=== PATIENT | female | born 1960 | race African-American/Black ===

== ENCOUNTER → 2017-02-13 | Outpatient (CLI) | payer MEDICARE, OTHER ==
--- NOTE | 2017-02-13 12:23 | RAD ---
APPROVED REPORT Test Type: Exercise Stress Nurse/Tech: RT Paddy (Annelise) (N) Test Indications: chest pain, fatigue Cardiac History: none Medications: see ehr Medical History: none Resting ECG: sinus rhythm Resting Heart Rate: 64 bpm Resting Blood Pressure: 116/69mmHg Pretest Chest Pain: None Nurse/Tech Notes Consent: The procedure was explained to the patient in lay terms. Informed consent was witnessed. Justyn eout was entered into [employer]. History and Stress Test performed by RT Paddy (Annelise) (N) POST EXERCISE Reason for Termination: Fatigue Target HR: Yes Max HR: 152 bpm 93% of Maximum Predicted HR: 163 bpm Exercise duration: 7:06 min:sec, 3 Stage Exercise capacity: 10METs Max Blood Pressure: 146/79mmHg Blood Pressure response to exercise: Normal blood pressure response during stress. Chest Pain: No. INTERPRETATION Stress EKG Conclusion: The resting EKG shows a normal sinus rhythm with mild nonspecific ST segment c hanges The stress EKG shows no significant changes from baseline. No EKG evidence of stress-induced ischemia. Imaging Protocol IMAGE PROTOCOL: Rest Tc-99m/stress Tc-99m 1 day Rest: Stress: Viability: Radiopharm.Tc99m [id number] Sestamibi Dose11.1mCi 32mCi Duration 20min. 15min. Img Date 02/13/2017 02/13/2017 Inj-Img Hmhd20ijp. 60min. Post-Injection Exercise: 1 minute Rest Admin Site:IV - Right AntecubitalAdministrator: RT Paddy (Annelise)(N) Stress Admin Site: IV - Right AntecubitalAdministrator: RT aPddy (Annelise)(N) STRESS DATA End Diast. Vol.63.0mlAv. Heart Rate65.0bpm LVEDV index BSA1.0mlCardiac Output0.1L/min End Syst. Vol.17.0mlCO Index BSA2.9L/min LVESV index BSA0.0mlMyocardial Jduq705.0g Eject. Peaskcqd99.0% Stress Rates Pk. Fill Rate3.03EDV/secLVtime Pk. Fill 203.84msec Pk. Empty Rate3.77ESV/secLVtime Pk. Ixplu900.65msec 1/3 Pk. Fill1.54EDV/sec Stress Scores Regional WT0.00Summed WT4.00 Regional WM0.00Summed WM0.00 LV Perfusion The stress scans showed no significant defects. The rest scans showed no significant defects. Nuclear imaging shows no reversible ischemia or infarct. Wall Motion Left ventricular systolic function is normal with an ejection fraction of greater than 70%. LV Perf. Quant 17 Seg. SSS0.00 17 Seg. SRS2.00 17 Seg. SDS0.00 Stress Defect Extent (% LAD)0.00Rest Defect Extent (% LAD)5.00Rev. Defect Extent (% LAD)0.00 Stress Defect Extent (% LCX) 0.00Rest Defect Extent (% LCX)0.00Rev. Defect Extent (% LCX)0.00 Stress Defect Extent (% RCA)0.00Rest Defect Extent (% RCA)0.00Rev. Defect Extent (% RCA)0.00 Stress Defect Extent (% LUDIN)0.00Rest Defect Extent (% LUDIN)1.70Rev. Defect Extent (% LUDIN)0.00 Conclusion 1. Good exercise tolerance. 2. No chest pain with exertion. 3. No EKG evidence of stress-induced ischemia. 4. Nuclear imaging shows no reversible ischemia or infarct. 5. Normal left ventricular systolic function with an ejection fraction of greater than 70%. 6. Low risk treadmill nuclear stress test.
== END | disposition home or self-care (01) ==
LOC: NM 08:30
PROVIDERS: ATTEND Internal Medicine Cardiovascular Disease
DX: R06.00 Dyspnea, unspecified (principal); R53.83 Other fatigue
CPT/HCPCS: 78452; 93017; 96374; 96376; A9500

== ENCOUNTER → 2017-07-15 | Outpatient (CLI) | payer MEDICARE, OTHER ==
--- NOTE | 2017-07-15 15:59 | RAD ---
Left foot, 3 views, 07/15/2017: History: Foot pain. No fracture or dislocation is identified. There are minimal arthritic changes at scattered interphalangeal joints. There is mild subcutaneous edema. IMPRESSION: No acute bony abnormality is detected.
== END | disposition home or self-care (01) ==
LOC: DXRADRC 15:47
PROVIDERS: ATTEND Nurse Practitioner Family
DX: M19.072 Primary osteoarthritis, left ankle and foot (principal)
CPT/HCPCS: 73630

== ENCOUNTER → 2017-07-17 | Outpatient (CLI) | payer MEDICARE, OTHER ==
--- NOTE | 2017-07-17 14:23 | RAD ---
Renal ultrasound, 07/17/2017: History: Hematuria, left flank pain The right kidney measures 10.7 cm in length while the left kidney measures 10.3 cm. There is no evidence of hydronephrosis or a renal mass. The renal parenchymal echogenicity is within normal limits. Limited views of the poorly distended urinary bladder show no abnormality. IMPRESSION: No significant renal abnormality is detected.
== END | disposition home or self-care (01) ==
LOC: US 13:28
PROVIDERS: ATTEND Nurse Practitioner Family
DX: R31.9 Hematuria, unspecified (principal); N32.89 Other specified disorders of bladder
CPT/HCPCS: 76770

== ENCOUNTER 2020-06-05 11:13 | Emergency (ER) | payer MEDICARE, OTHER ==
[~2020-06-05] VITALS: Ht 162.6 cm; Wt 74.2 kg
--- NOTE | 2020-06-05 13:03 | RAD ---
CHEST AP ONLY INDICATION: Reason: shob / Spl. Instructions: / History: . COMPARISON STUDY: None. FINDINGS: Lungs: Normal lung volume. No pulmonary mass or consolidation. The tracheobronchial tree and hilar structures are normal. Pleura: No pleural effusion or pneumothorax. Heart and Mediastinum: The cardiomediastinal silhouette is normal. The great vessels of the thorax are normal. IMPRESSION: No acute cardiopulmonary process. Electronically signed by: Iron Snell MD (06/05/2020 1:00 PM) [id number]
[2020-06-05 13:16] VITALS: BP 127/81
--- NOTE | 2020-06-05 13:22 | PHYS DOC ---
Past History Past Medical History: No Pertinent History (Tested COVID positive 6 days ago) Adult General Chief Complaint Chief Complaint: SHORTNESS OF BREATH HPI HPI Patient is a 59yo F who presents for check-up. Patient is typically healthy and has no known medical conditions. Nonetheless, patient recently tested positive for COVID-19 6 days ago after being exposed to a family member who was found to be a positive asymptomatic carrier. Since diagnosis, patient has been relatively symptom free. She denies fever, chills, fatigue, chest pain, SHOB, AP, or urinary symptoms. She was concerned about her diagnosis and visited our ED "just to get checked out". Review of Systems Review of Systems Fourteen body systems have been reviewed. See HPI for pertinent positives and negative responses, other calderon all other systems are negative, non pertinent or non contributory Allergies Allergies Allergies Coded Allergies Type Severity Reaction Last Updated Verified No Known Drug Allergies 02/13/17 No Physical Exam Physical Exam Constitutional: Well developed, well nourished, no acute distress, non-toxic appearance. [] HENT: Normocephalic, atraumatic, bilateral external ears normal, oropharynx moist, no oral exudates, nose normal. [] Eyes: PERRLA, EOMI, conjunctiva normal, no discharge. [] Neck: Normal range of motion, no tenderness, supple, no stridor. [] Cardiovascular:Heart rate regular rhythm, no murmur [] Lungs & Thorax: Bilateral breath sounds clear to auscultation [] Abdomen: Bowel sounds normal, soft, no tenderness, no masses, no pulsatile masses. [] Skin: Warm, dry, no erythema, no rash. [] Back: No tenderness, no CVA tenderness. [] Extremities: No tenderness, no cyanosis, no clubbing, ROM intact, no edema. [] Neurologic: Alert and oriented X 3, normal motor function, normal sensory function, no focal deficits noted. [] Psychologic: Affect normal, judgement normal, mood normal. [] Current Patient Data Vital Signs Vital Signs Date Time Temp Pulse Resp B/P (MAP) Pulse Ox O2 Delivery O2 Flow Rate FiO2 06/05/20 13:16 82 20 127/81 (96) 100 Room Air 06/05/20 12:46 81 18 128/83 (98) 99 Room Air 06/05/20 12:16 79 132/83 (99) 100 06/05/20 11:47 96.0 90 18 138/92 (107) 99 Room Air EKG EKG [] Radiology/Procedures Radiology/Procedures PROCEDURE: CHEST AP ONLY CHEST AP ONLY INDICATION: Reason: shob / Spl. Instructions: / History: . COMPARISON STUDY: None. FINDINGS: Lungs: Normal lung volume. No pulmonary mass or consolidation. The tracheobronchial tree and hilar structures are normal. Pleura: No pleural effusion or pneumothorax. Heart and Mediastinum: The cardiomediastinal silhouette is normal. The great vessels of the thorax are normal. IMPRESSION: No acute cardiopulmonary process. Electronically signed by: Iron Snell MD (06/05/2020 1:00 PM) [id number] Course & Med Decision Making Course & Med Decision Making Hemodynamically stable patient self-ambulated to ED and room for evaluation History and physical exam grossly benign CXR obtained and non-concerning Patient observed in ED, was found self-ambulating without issues, saturating >95% on RA without any signs of respiratory distress ED course and expectations of COVID-19 disease discussed, joint-decision for discharge home with continued supportive care Strict return precautions were discussed at length and also printed for patient prior to departure with good understanding All questions and concerns addressed prior to discharge Stable patient discharged home with strict orders for home quarantine Dragon Disclaimer Dragon Disclaimer This electronic medical record was generated, in whole or in part, using a voice recognition dictation system. Departure Departure: Impression: Primary Impression: COVID-19 Disposition: 01 HOME/RESIDENCE PRIOR TO ADM Condition: STABLE Referrals: BENITA RAVI DO (PCP) Additional Instructions: You have been tested for or diagnosed with COVID-19. It is an infection caused by a new type of coronavirus. COVID-19 will cause cold-like or mild flu symptoms in most. It can cause more severe symptoms like problems breathing in some. There is no treatment for COVID-19. The body will clear the infection over time. Self-care will help to ease discomfort. Steps to Take: Self-Care Rest as needed. Healthy habits may help you feel better. Steps include: Choose healthy foods including fruits and vegetables. Drink water throughout the day. Get plenty of sleep each night. If you smoke, try to quit. It may ease breathing. Avoid alcohol. Keep Others Healthy The virus can spread to others. Droplets are released every time you sneeze or cough. The droplets can get into the mouth, nose, or eyes of people near you and lead to infection. To lower the chances of spreading COVID-19 to others: Stay at home until your doctor has said it is safe to leave. If you tested positive this will mean staying isolated until both of the following are true: At least 7 days have passed since the start of illness. You are free of fever for at least 72 hours without the use of medicine. During this time: - Avoid public areas, events, or transportation. Do not return to work or school until your doctor has said it is safe to do so. - Call ahead if you need to go to a medical center. Let them know you may have COVID-19. It will help them guide you where to go. They may also ask you to wear a facemask when you come to the office. - If you call for emergency medical services, let them know you may have COVID- 19. While at home: - Try to avoid close contact with others. Stay about 6 feet away. - If possible, spend most of your time in a separate room from others. - Use a face mask if you will be in close contact with others such as sharing a room or vehicle. - Have someone wipe down common surfaces in the home. Use household physician gynecologist every day on areas like doorknobs, counters, or sinks. - Cough or sneeze into a tissue. Throw the tissue away right after use. If a tissue is not available, cough or sneeze into your elbow. - Wash your hands often. Wash them after sneezing or coughing. Use soap and water and wash for at least 20 seconds. Alcohol based hand immersion metalcleaner can be used if soap and water is not available. - Do not prepare food for others. Avoid sharing personal items like forks, spoons, or toothbrushes. - Avoid close contact with pets while you are sick. There is no evidence of the virus passing to pets. This is a safety step until more is known about this virus. Isolation can be frustrating. Social interaction can help. Keep in touch with friends and family through phone and tech options. You can still interact with others in your home, just keep a safe distance of about 6 feet. Follow-up: Your doctors office will check in with you to see if there are any changes in your health. You may be asked to keep track of symptoms to share with them. They will also let you know when you are clear to be in public again. Problems to Look Out For: Contact your doctor if your recovery is not going as you expect. Get emergency care if you have problems such as: - Trouble breathing - Nonstop chest pain or pressure - Changes in awareness, confusion, or problems waking - Lips or face have bluish color - Worsening of symptoms If you think you have an emergency, call for emergency medical services right away. As taken from [facility] You were evaluated in the Emergency Department today for a cough. Your evaluation suggests a viral infection such as Coronavirus. It is important that you continue to self isolate and practice good hygiene at home. Please follow up with your primary care physician as discussed. Return to the Emergency Department if you experience worsening cough, fever, shortness of breath, recurrent vomiting, lethargy, or any other concerning symptoms. Thank you for choosing us for your care. Usted fue evaluado en el Departamento de Emergencia hoy por tos. Carrera evaluacin sugiere meghan infeccin viral lesia el coronavirus. Es importante que contine aislndose y practicando meghan buena higiene en el hogar. Todd un seguimiento con carrera mdico de atencin primaria lesia se discuti. Regrese al Departamento de Emergencias si experimenta un empeoramiento de la tos, fiebre, falta de aliento, vmitos recurrentes, letargo o cualquier otro sntoma relacionado. Ben por elegir nosotros para carrera atencin. Home Care Instructions for Patients with Mild Respiratory Infection Most people with respiratory infections like colds, the flu, and Coronavirus Disease (COVID-19) will have mild illness and can get better with appropriate home care and without the need to see a provider. People who are elderly, , or have a weak immune system, or other medical problem are at higher risk of more serious illness or complications. It is recommended that they carefully monitor their symptoms closely and seek medical care early if their symptoms get worse. TREATMENT AND MEDICAL CARE Treatment There is no specific treatment for most viruses including those that that cause the common cold and those that cause COVID-19. Sometimes there is treatment for the viruses that cause influenza if given early. Antibiotics treat infections caused by bacteria, but they do not work against viruses.Most people recover on their own from these viruses, including COVID-19. Here are steps that you can take to help you get better: Rest Drink plenty of fluids Take dqzn-ims-glpdmqm cold and flu medications to reduce fever and pain. Follo w the instructions on the package, unless your doctor gave you instructions. Note that these medicines do not ``cure the illness and therefore do not stop you from spreading germs. Children should not be given medication that contains aspirin (acetylsalicylic acid) because it can cause a rare but serious illness called Sudarshan syndrome. Medicines without aspirin include acetaminophen (Tylenol) and ibuprofen (Advil, Motrin). Children younger than age 2 should not be given any bcyn-urf-bfotcnu cold medications without first speaking with a doctor.Seeking Medical Care You should seek medical care if you are not getting better within a week, or if your symptoms get worse. If you are elderly, , have a weak immune system, or other medical problems, call your doctor right away. It is best to call ahead of time to discuss your symptoms, if possible. This may allow you to receive the advice you need by phone. By avoiding a visit to a healthcare facility, you protect yourself from getting a new infection and protect others from catching an infection from you. If you do visit a healthcare facility, put on a mask to protect other patients and staff. It is recommended that you seek medical care for serious symptoms, such as: People with potentially life-threatening symptoms should call 911. If possible, put on a facemask before emergency medical services arrive.PROTECTING OTHERS Follow the steps below to help prevent the disease from spreading to people in your home and community.Stay home when you are sick Stay home - do not go to work, school, or public areas. Stay home for at least 24 hours after your symptoms have gone away without the use of fever-reducing medicines. If you must leave home while you are sick, try to avoid using public transportation, ride-shares, and taxis. Wear a mask if possible. Separate yourself from other people and animals in your home Stay in a specific room and away from other people in your home as much as possible. Use a separate bathroom, if available. Try to stay at least 6 feet from others. Do not handle pets or other animals while you are sick. Cover your coughs and sneezes Cover your mouth and nose with a tissue when you cough or sneeze. Throw used tissues in a lined trash can; immediately wash your hands. Avoid sharing personal household items Do not share dishes, drinking glasses, cups, eating utensils, towels, or bedding with other people or pets in your home. Wash them thoroughly with soap and water after use. Clean your hands often Wash your hands often with soap and water for at least 20 seconds. If soap and water are not available, clean your hands with an alcohol-based hand auto damage estimator that contains at least 60% alcohol, covering all surfaces of your hands and rubbing them together until they feel dry. Use soap and water if your hands are visibly dirty. Clean all ``high-touch surfaces every day High touch surfaces include counters, tabletops, doorknobs, bathroom fixtures, toilets, phones, keyboards, tablets, and bedside tables. Also, clean any ana faces that may have body fluids on them. Use a household cleaning spray or wipe, according to the product label instructions. COVID-19 (Novel Coronavirus) FAQs for Inquiring Patients What do you do if you are worried that you have been exposed to COVID-19 but are without any symptoms? If you develop symptoms that may indicate an infection, contact your physician. These include fever, cough, and shortness of breath. Testing is not available for asymptomatic individuals, regardless of travel history. To reduce the chance of getting sick use general infection prevention measures such as hand washing, covering your mouth and nose when you cough or sneeze and discarding any tissues carefully, and staying home when you are sick.Can exceptions be made for patients who are really worried and want to be tested? Presently testing is only available through the [facility] Department of Public Health and Centers for Disease Control and Prevention. Only patients who meet the updated COVID-19 PUI definition may be tested. We do not control or set the PUI definition or evaluation criteria. We are unable to provide testing to patients who do not meet the strict criteria. Should patients cancel or postpone an upcoming trip? The decision about travel is personal and should be made in the context of a persons underlying health conditions, reason for travel and necessity of travel. Travel insurance generally does not cover cancellations due to concerns of infectious disease outbreaks. The Center for Disease Control has a section on travel notices. Situations are changing frequently and you should monitor the site for updates. Should situations change rapidly in a foreign country while they are traveling, you could be subject to quarantine or restrictions upon return to the [facility]. It is best to have a plan on how to return urgently if needed during a trip abroad. Because of how air circulates and is filtered on airplanes, most viruses do not spread easily on airplanes. CDC does not recommend use of facemasks during air travel.What other general precautions are advised? Patients should be instructed to: Avoid close contact with people who are sick. Avoid touching your eyes, nose and mouth. Stay home from work or school when they are sick. If you have a fever, you shoul d remain home until 24 hours after fever resolves. Clean and disinfect frequently touched objects and surfaces using a regular h ousehold cleaning spray or wipe. Sneeze/cough into their elbow, not your hand. Practice frequent hand hygiene with soap and water (at least 20 seconds) or alcohol-based hand rub. Consider avoiding crowded places or mass gatherings, especially if you are im munocompromised or have chronic lung disease. There is no evidence to support transmission of COVID-19 from goods imported from [place]. Are there any special precautions that are recommended if I am ? There is not yet any information available about the susceptibility of women to COVID-19. As a general rule, women may be more susceptible to viral respiratory infections and at risk for more severe illness. The CDC guidance for COVID-19 and has answers to questions about tra nsmission during delivery, as well as other situations. Should food, water, or medications be stockpiled? Should people telecommute? The CDC has excellent information on this. Please visit the CDCs guidance for getting your household ready for COVID-19. What should I do if I start feeling sick at work? And what should the workplace do for anyone exposed? Anyone who is sick with a fever and cough should stay home from work until at least 24 hours after resolution of fever, regardless of concerns for COVID-19. It is still influenza (flu) season and influenza remains far more common. Justification of Admission: Justification of Admission: Justification of Admission Dx: N/A STACEY CHANDLER DO Jun 05, 2020 13:22
== END 2020-06-05 13:28 | disposition home or self-care (01) ==
LOC: ER 11:13
DX: U07.1 COVID-19 (principal)
CPT/HCPCS: 71045; 99283

== ENCOUNTER 2020-06-08 12:08 | Emergency (ER) | payer MEDICARE, OTHER ==
[~2020-06-08] VITALS: Ht 162.6 cm; Wt 59.0 kg
[2020-06-08 12:29] VITALS: BP 143/76
--- NOTE | 2020-06-08 12:38 | PHYS DOC ---
Past History Past Medical History: Anxiety Past Surgical History: No Surgical History Alcohol Use: None Adult General Chief Complaint Chief Complaint: SHORTNESS OF BREATH HPI HPI Patient is a 59-year-old female who presents for ER follow-up. She was recently seen in our ER and evaluated by myself 2 days ago after being known COVID positive. She was asymptomatic at time of exposure and was found to be positive within the past 7 days. At prior visit, patient was asymptomatic citing mild difficulty with inspiration; otherwise, no other concerning signs or symptoms. An x-ray was performed and showed no acute disease. Patient was educated extensively on the disease course of COVID-19 and sent home with continued supportive care. Nonetheless, patient's anxiety and continued shortness of breath on inspiration brought her in for evaluation. She wants "blood work "performed. She has no new symptoms since she was last seen. Denies any fever, denies any other concerning constitutional symptoms, chest pain or tightness, abdominal pain, bladder bowel function. She is requesting medical treatment today, she wants inhalers and steroids Review of Systems Review of Systems Fourteen body systems of review of systems have been reviewed. See HPI for pertinent positives and negative responses, other calderon all other systems are negative, non-pertinent or non-contributory Allergies Allergies Allergies Coded Allergies Type Severity Reaction Last Updated Verified No Known Drug Allergies 02/13/17 No Physical Exam Physical Exam Constitutional: Well developed, well nourished, no acute distress, non-toxic appearance. [] HENT: Normocephalic, atraumatic, bilateral external ears normal, oropharynx moist, no oral exudates, nose normal. [] Eyes: PERRLA, EOMI, conjunctiva normal, no discharge. [] Neck: Normal range of motion, no tenderness, supple, no stridor. [] Cardiovascular:Heart rate regular rhythm, no murmur [] Lungs & Thorax: Bilateral breath sounds clear to auscultation [] Abdomen: Bowel sounds normal, soft, no tenderness, no masses, no pulsatile masses. [] Skin: Warm, dry, no erythema, no rash. [] Back: No tenderness, no CVA tenderness. [] Extremities: No tenderness, no cyanosis, no clubbing, ROM intact, no edema. [] Neurologic: Alert and oriented X 3, normal motor function, normal sensory function, no focal deficits noted. [] Psychologic: Affect normal, judgement normal, mood normal. [] Current Patient Data Vital Signs Vital Signs Date Time Temp Pulse Resp B/P (MAP) Pulse Ox O2 Delivery O2 Flow Rate FiO2 06/08/20 12:29 98.4 95 18 143/76 (98) 97 Room Air EKG EKG [] Radiology/Procedures Radiology/Procedures [] Course & Med Decision Making Course & Med Decision Making Patient self ambulatory and seen by myself on arrival Comprehensive history and physical exam obtained. Patient well-appearing, nontoxic, no clinical indication for further work-up or invasive intervention Patient wanted blood levels checked, specifically her oxygen. I told her this was not necessary as she was hooked up to pulse ox monitor with readings greater than 96% throughout duration of stay Patient also wanted inhaler and steroid use to alleviate her symptoms. Patient on clinical exam had no wheezes or other indications for such medications, I discussed this with her at length Again, I educated patient extensively on the disease course of COVID-19. I educated her on signs and symptoms that should bring her back here for emergent care and evaluation Ultimately, patient discharged in stable condition back home with continued self quarantine and supportive care instructions with close PCP follow-up after quarantine. Dragon Disclaimer Dragon Disclaimer This electronic medical record was generated, in whole or in part, using a voice recognition dictation system. Departure Departure: Impression: Primary Impression: COVID-19 Disposition: 01 HOME/RESIDENCE PRIOR TO ADM Condition: STABLE Referrals: BENITA RAVI DO (PCP) Additional Instructions: Short You were evaluated in the Emergency Department today for a cough. Your evaluation suggests a viral infection such as Coronavirus. It is important that you continue to self isolate and practice good hygiene at home. Please follow up with your primary care physician as discussed. Return to the Emergency Department if you experience worsening cough, fever, shortness of breath, recurrent vomiting, lethargy, or any other concerning symptoms. Thank you for choosing us for your care. Usted fue evaluado en el Departamento de Emergencia hoy por tos. Carrera evaluacin sugiere meghan infeccin viral lesia el coronavirus. Es importante que contine aislndose y practicando meghan buena higiene en el hogar. Todd un seguimiento con carrera mdico de atencin primaria lesia se discuti. Regrese al Departamento de Emergencias si experimenta un empeoramiento de la tos, fiebre, falta de aliento, vmitos recurrentes, letargo o cualquier otro sntoma relacionado. Ben por elegir nosotros para carrera atencin. Home Care Instructions for Patients with Mild Respiratory Infection Most people with respiratory infections like colds, the flu, and Coronavirus Disease (COVID-19) will have mild illness and can get better with appropriate home care and without the need to see a provider. People who are elderly, , or have a weak immune system, or other medical problem are at higher risk of more serious illness or complications. It is recommended that they carefully monitor their symptoms closely and seek medical care early if their symptoms get worse. TREATMENT AND MEDICAL CARE Treatment There is no specific treatment for most viruses including those that that cause the common cold and those that cause COVID-19. Sometimes there is treatment for the viruses that cause influenza if given early. Antibiotics treat infections caused by bacteria, but they do not work against viruses.Most people recover on their own from these viruses, including COVID-19. Here are steps that you can take to help you get better: Rest Drink plenty of fluids Take ivkg-blc-lusqvty cold and flu medications to reduce fever and pain. Follow the instructions on the package, unless your doctor gave you instructions. Note that these medicines do not ``cure the illness and therefore do not stop you from spreading germs. Children should not be given medication that contains aspirin (acetylsalicylic acid) because it can cause a rare but serious illness called Sudarshan syndrome. Medicines without aspirin include acetaminophen (Tylenol) and ibuprofen (Advil, Motrin). Children younger than age 2 should not be given any zddv-olx-eeqfqil cold medications without first speaking with a doctor.Seeking Medical Care You should seek medical care if you are not getting better within a week, or if your symptoms get worse. If you are elderly, , have a weak immune system, or other medical problems, call your doctor right away. It is best to call ahead of time to discuss your symptoms, if possible. This may allow you to receive the advice you need by phone. By avoiding a visit to a healthcare facility, you protect yourself from getting a new infection and protect others from catching an infection from you. If you do visit a healthcare facility, put on a mask to protect other patients and staff. It is recommended that you seek medical care for serious symptoms, such as: People with potentially life-threatening symptoms should call 911. If possible, put on a facemask before emergency medical services arrive.PROTECTING OTHERS Follow the steps below to help prevent the disease from spreading to people in your home and community.Stay home when you are sick Stay home - do not go to work, school, or public areas. Stay home for at least 24 hours after your symptoms have gone away without the use of fever-reducing medicines. If you must leave home while you are sick, try to avoid using public transportation, ride-shares, and taxis. Wear a mask if possible. Separate yourself from other people and animals in your home Stay in a specific room and away from other people in your home as much as possible. Use a separate bathroom, if available. Try to stay at least 6 feet from others. Do not handle pets or other animals while you are sick. Cover your coughs and sneezes Cover your mouth and nose with a tissue when you cough or sneeze. Throw used tissues in a lined trash can; immediately wash your hands. Avoid sharing personal household items Do not share dishes, drinking glasses, cups, eating utensils, towels, or bedding with other people or pets in your home. Wash them thoroughly with soap and water after use. Clean your hands often Wash your hands often with soap and water for at least 20 seconds. If soap and water are not available, clean your hands with an alcohol-based hand chronometer assembler that contains at least 60% alcohol, covering all surfaces of your hands and rubbing them together until they feel dry. Use soap and water if your hands are visibly dirty. Clean all ``high-touch surfaces every day High touch surfaces include counters, tabletops, doorknobs, bathroom fixtures, toilets, phones, keyboards, tablets, and bedside tables. Also, clean any surfaces that may have body fluids on them. Use a household cleaning spray or wipe, according to the product label instructions. COVID-19 (Novel Coronavirus) FAQs for Inquiring Patients What do you do if you are worried that you have been exposed to COVID-19 but are without any symptoms? If you develop symptoms that may indicate an infection, contact your physician. These include fever, cough, and shortness of breath. Testing is not available for asymptomatic individuals, regardless of travel history. To reduce the chance of getting sick use general infection prevention measures such as hand washing, covering your mouth and nose when you cough or sneeze and discarding any tissues carefully, and staying home when you are sick.Can exceptions be made for patients who are really worried and want to be tested? Presently testing is only available through the [facility] Department of Public Health and Centers for Disease Control and Prevention. Only patients who meet the updated COVID-19 PUI definition may be tested. We do not control or set the PUI definition or evaluation criteria. We are unable to provide testing to patients who do not meet the strict criteria. Should patients cancel or postpone an upcoming trip? The decision about travel is personal and should be made in the context of a persons underlying health conditions, reason for travel and necessity of travel. Travel insurance generally does not cover cancellations due to concerns of infectious disease outbreaks. The Center for Disease Control has a section on travel notices. Situations are c hanging frequently and you should monitor the site for updates. Should situations change rapidly in a foreign country while they are traveling, you could be subject to quarantine or restrictions upon return to the [place]. It is best to have a plan on how to return urgently if needed during a trip abroad. Because of how air circulates and is filtered on airplanes, most viruses do not spread easily on airplanes. CDC does not recommend use of facemasks during air travel.What other general precautions are advised? Patients should be instructed to: Avoid close contact with people who are sick. Avoid touching your eyes, nose and mouth. Stay home from work or school when they are sick. If you have a fever, you should remain home until 24 hours after fever resolves. Clean and disinfect frequently touched objects and surfaces using a regular household cleaning spray or wipe. Sneeze/cough into their elbow, not your hand. Practice frequent hand hygiene with soap and water (at least 20 seconds) or alcohol-based hand rub. Consider avoiding crowded places or mass gatherings, especially if you are immunocompromised or have chronic lung disease. There is no evidence to support transmission of COVID-19 from goods imported from [place]. Are there any special precautions that are recommended if I am ? There is not yet any information available about the susceptibility of women to COVID-19. As a general rule, women may be more susceptible to viral respiratory infections and at risk for more severe illness. The CDC guidance for COVID-19 and has answers to questions about transmission during delivery, as well as other situations. Should food, water, or medications be stockpiled? Should people telecommute? The CDC has excellent information on this. Please visit the CDCs guidance for getting your household ready for COVID-19. What should I do if I start feeling sick at work? And what should the workplace do for anyone exposed? Anyone who is sick with a fever and cough should stay home from work until at least 24 hours after resolution of fever, regardless of concerns for COVID-19. It is still influenza (flu) season and influenza remains far more common. Justification of Admission: Justification of Admission: Justification of Admission Dx: N/A STACEY CHANDLER DO Jun 08, 2020 12:38
== END 2020-06-08 12:45 | disposition home or self-care (01) ==
LOC: ER 12:08
DX: U07.1 COVID-19 (principal); F41.9 Anxiety disorder, unspecified
CPT/HCPCS: 99281

== ENCOUNTER → 2020-12-14 | Outpatient (CLI) | payer MEDICARE, OTHER ==
--- NOTE | 2020-12-14 18:07 | RAD ---
Lumbar spine 3 views: Reason for examination: Abdominal pain and back pain. The vertebral bodies of the lumbar spine are normally aligned anteriorly and posteriorly. No acute fr acture or subluxation is evident. Posterior elements appear to be intact. There are some degenerative changes at the L4-5 and L5-S1 facet joints. The sacrum or sacroiliac joints show no abnormalities. T he intervertebral discs are maintained. IMPRESSION: Degenerative facet changes at the L4-5 and L5-S1 levels. No acute abnormality in the lumbar spine. Abdomen 2 views: The lung bases appear to be clear. There is no gross organomegaly. Psoas muscles are symmetric. Bowel gas pattern is nonspecific and non obstructive. Calcifications probably representing phleboliths are seen in the pelvis. No acute bony a bnormalities are seen in the lumbar spine or pelvis. IMPRESSION: Nonspecific nonobstructive bowel gas pattern. Calcifications seen in the pelvis bilaterally which probably represent phleboliths but recommend clin ical correlation as distal ureteral calculi cannot be excluded. Electronically signed by: Vandana Oliveira MD (12/14/2020 6:04 PM) [facility]
== END ==
LOC: PMG 17:39
PROVIDERS: ATTEND Physician Assistant
DX: M47.817 Spondylosis without myelopathy or radiculopathy, lumbosacral region (principal); M25.80 Other specified joint disorders, unspecified joint
CPT/HCPCS: 72100; 74019

== ENCOUNTER → 2020-12-23 | Outpatient (CLI) | payer MEDICARE, OTHER ==
--- NOTE | 2020-12-23 16:45 | RAD ---
EXAM: Abdomen and pelvis CT without contrast. HISTORY: Anemia. Hematuria. Left flank pain. TECHNIQUE: Computed tomographic images the abdomen and pelvis were obtained without contrast. *One or more of the following individualized dose reduction techniques were utilized for this examina tion: 1. Automated exposure control. 2. Adjustment of the mA and/or kV according to patient size. 3. Use of iterative reconstruction technique. COMPARISON: None. FINDINGS: Evaluation of the lower thorax is unremarkable. No suspicious hepatic lesion is seen. The g allbladder, pancreas, spleen and adrenal glands are unremarkable. There is a 1 mm nonobstructing ston e within the inferior right kidney. There are calcifications along the courses of the distal ureters due to pelvic phleboliths. There is no hydronephrosis. There is a suspected cyst within the lateral l ower mid zone of the left kidney measuring 1.5 cm. There is no evidence of bowel obstruction. The appendix is surgically absent. There is a tiny umbilic al hernia containing a portion of the mid transverse colon wall. The hernia defect measures approxima tely 1.9 cm. There is no lymphadenopathy. The uterus is absent. There is no suspicious osseous lesion . IMPRESSION: 1. No convincing acute abdominal or pelvic finding. 2. 1 mm nonobstructing right renal stone. 3. Small region of hypodensity within the left kidney, possibly due to a cyst. This is difficult to c onfirm in the absence of contrast. Renal sonography can be performed to confirm benignity. 3. Tiny umbilical hernia containing a portion of mid transverse colon. There is no evidence of mechan ical obstruction. Electronically signed by: Terese Frost MD (12/23/2020 4:42 PM) [id number]
== END ==
LOC: CT 15:32
PROVIDERS: ATTEND Physician Assistant
DX: K42.9 Umbilical hernia without obstruction or gangrene (principal); N20.0 Calculus of kidney; I87.8 Other specified disorders of veins; N28.89 Other specified disorders of kidney and ureter; D64.9 Anemia, unspecified; R31.9 Hematuria, unspecified; R10.9 Unspecified abdominal pain
CPT/HCPCS: 74176

== ENCOUNTER → 2021-01-16 | Outpatient (CLI) | payer MEDICARE, OTHER ==
--- NOTE | 2021-01-16 10:12 | RAD ---
PROCEDURE: US RENAL BILAT STUDY DATE: 01/16/2021 CLINICAL INDICATION / HISTORY: Reason: ABNORMAL CT / Spl. Instructions: / History: . Patient is 60 and has anemia, hematuria and left flank pain. Left renal hypodensity on CT. TECHNIQUE: Real time ultrasound with hard copy imaging was performed. COMPARISON: Abdomen and pelvis CT without IV contrast 12/23/2020 FINDINGS: Ultrasound evaluation demonstrates the kidneys are normal in size and shape with with appro priate echogenicity and cortical thickness. There is no mass, hydronephrosis, or demonstrable stone formation. The right kidney measures 9.7 x 4.1 x 4.3 cm and the left kidney measures 9.4 x 4.6 x 5.7 cm. The abdominal aorta is normal in caliber. The Inferior vena cava is unremarkable. No abnormal fluid collections are demonstrated. The urinary bladder was not visualized as the patient had just voided. IMPRESSION: No definite renal mass identified by ultrasound at this examination. Given history of hematuria [facility] er, recommend renal mass protocol abdominal CT with and without IV contrast or abdominal MRI with and without IV contrast to confirm these findings when clinically feasible, preferably within the next 3 -6 months. Electronically signed by: Danilo Garcia MD (01/16/2021 10:10 AM) [id number]
== END ==
LOC: US 08:22
PROVIDERS: ATTEND Physician Assistant
DX: R93.5 Abnormal findings on diagnostic imaging of other abdominal regions, including retroperitoneum (principal); R10.9 Unspecified abdominal pain; R31.9 Hematuria, unspecified; D64.9 Anemia, unspecified
CPT/HCPCS: 76770

== ENCOUNTER → 2021-02-28 | Outpatient (CLI) | payer MEDICARE, OTHER | LOC: US 13:04 | PROVIDERS: ATTEND Nurse Practitioner Family | DX: M79.604 Pain in right leg (principal) | CPT/HCPCS: 93971 ==

== ENCOUNTER 2021-03-05 15:07 | Emergency (ER) | payer MEDICARE, OTHER ==
[~2021-03-05] VITALS: Ht 162.6 cm; Wt 55.8 kg
--- NOTE | 2021-03-05 15:59 | PHYS DOC ---
Past History Past Medical History: Anxiety Past Surgical History: No Surgical History Alcohol Use: None General Adult EDM: Chief Complaint: ANXIETY/PANIC ATTACK HPI: HPI: 60-year-old -[place] female past medical history of anxiety, resents the ED with complaints of " I cannot calm down, I get sick when I eat," for the past week (keeps down water and ensure). Reports she stopped taking her BuSpar in January 2020 because she felt as if her anxiety was well controlled. States she is unable to relax. Stressed about her 30 yr old AA son who is "always hanging in the streets, multiple police encounters." States he follows with depression but she is unaware of him using drugs or plans to harm self or others. States she prays alot of him and can't stop worrying. Patient denies any alcohol, methamphetamine or cocaine abuse. States she occasionally drinks 1 cup coffee but not daily. Is not on any weight loss medications. Reports her can take her home. Review of Systems: Review of Systems: Constitutional: Denies fever or chills Eyes: Denies change in visual acuity HENT: Denies nasal congestion or sore throat Respiratory: Denies cough or shortness of breath Cardiovascular: Denies chest pain or syncope GI: Denies abdominal pain, vomiting, : Denies dysuria or vaginal bleeding Musculoskeletal: Denies back pain or joint pain Integument: Denies rash or diaphoresis Neurologic: Denies headache, focal weakness or sensory changes Endocrine: Denies polyuria or polydipsia Psychiatric: Denies depression, suicidal or homicidal ideations Current Medications: Current Meds: Current Medications Medications (Trade) Dose Ordered Sig/True Start Time Stop Time Status Last Admin Dose Admin Alprazolam (Xanax) 0.5 mg 1X ONCE 03/05/21 16:00 03/05/21 16:01 UNV Ondansetron HCl (Zofran Odt) 4 mg 1X ONCE 03/05/21 16:00 03/05/21 16:01 UNV Allergies: Allergies: Allergies Coded Allergies Type Severity Reaction Last Updated Verified No Known Drug Allergies 03/05/21 No Physical Exam: PE: Constitutional: Well developed, well nourished, no acute distress, non-toxic appearance, thin/healthy, does not appear 60, appears much younger HENT: Normocephalic, atraumatic, Eyes: EOMI, conjunctiva normal, no discharge. Neck: Normal range of motion, supple, Cardiovascular: S1/2 present, regular rhythm Lungs & Thorax: Speaking in full sentences, bilateral equal chest rise, no tachypnea or increased work of breathing Abdomen: soft, no tenderness, Skin: Warm, dry, ] Extremities: No tenderness, no cyanosis, no lower extremity edema Neurologic: Alert and oriented X 3, normal motor function, normal sensory function, no focal deficits noted. [] Psychologic: Affect normal, judgement normal, mood-very anxious/in her head, actively shaking in ED room Current Patient Data: Vital Signs: Vital Signs Date Time Temp Pulse Resp B/P (MAP) Pulse Ox O2 Delivery O2 Flow Rate FiO2 03/05/21 15:15 98.4 98 18 136/78 (97) 97 EKG: EKG: [] Radiology/Procedures: Radiology/Procedures: [] Heart Score: C/O Chest Pain: No Risk Factors: Risk Factors: DM, Current or recent (<one month) smoker, HTN, HLP, family history of CAD, obesity. Risk Scores: Score 0 - 3: 2.5% MACE over next 6 weeks - Discharge Home Score 4 - 6: 20.3% MACE over next 6 weeks - Admit for Clinical Observation Score 7 - 10: 72.7% MACE over next 6 weeks - Early Invasive Strategies Course & Med Decision Making: Course & Med Decision Making Pertinent Labs and Imaging studies reviewed. (See chart for details) On reevaluation patient very calm and appreciative. She states "I haven't been relaxed in a week," with significant relief of her anxiety, reports she wants to go home and eat eggs. Patient with her old buspar plastic container -was pre scribed BuSpar 10 mg twice daily, as needed for anxiety. I explained I am not aware this medication is given on an as needed basis, that it's usually a daily routine medication used for anxiety maintenance and that the medication I gave her in the ED was the rescue medication. I encouraged her to discuss this with her provider or psychiatrist-thought for patient safety benzodiazepine should be prescribed by a provider that she sees routinely. Will prescribe her Zofran for her anxiety related nausea, Atarax for sleeping/panic attack rescue and will prescribe BuSpar medication to discuss this with her pharmacist and provider. Will discharge home with strict ED return precautions were given for panic attacks, decreased sleep, suicidal or homicidal thoughts or depression. Encouraged urgent outpatient follow-up with PMD and psychiatry as needed for outpatient management. Life-threatening processes were considered but are low suspicion at this time, given history, physical exam and ED workup. Pt was educated on all prescription medications and adverse effects. All patient's questions were answered and pt was stable at time of discharge. Life/limb-threatening differential includes but is not limited to, end organ damage/sepsis, trauma/abuse/neglect, neurologic deficit, alcohol/drug ingestion, toxidrome, suicidal/homicidal ideations plans or attempts, psychosis or mental illness resulting in self neglect and inability to care for self. I spoken with the patient and her caregivers. I explained the patient's cond ition, diagnoses and treatment plan based on the information available to me at this time. I have answered the patient and her caregiver's questions and addressed any concerns. The patient and her caregivers have a good understanding of patient's diagnosis, condition and treatment plan as can be expected at this point. Vital signs have been stable. Patient's condition is stable and appropriate for discharge from the emergency department. Patient will pursue further outpatient evaluation with primary care physician or other designated or consulting physician as outlined in the discharge instructions. The patient and/or caregivers are agreeable to this plan of care and follow-up instructions have been explained in detail. The patient and/or caregivers have received these instructions in written form and have expressed an understanding of the discharge instructions. The patient and/or caregivers are aware that any significant change of condition or worsening of symptoms should prompt immediate return to this or the closest emergency department or call to 911. Kassi Disclaimer: Kassi Disclaimer: This electronic medical record was generated, in whole or in part, using a voice recognition dictation system. Departure Departure: Impression: Primary Impression: Generalized anxiety disorder with panic attacks Disposition: HOME / SELF CARE / HOMELESS Condition: STABLE Referrals: MAXINE LINTON (PCP) with in 3-5 days for followup return to ed if you should want to end your life or others Patient Instructions: Anxiety and Panic Attacks Additional Instructions: FOLLOW UP WITH PSYCHIATRY: To discuss definitive options for anxiety management/counseling/cognitive behavior therapy [facility] [address], [address] [place], [place] [id number] [facility] [address] [place] [address] Brandan [facility]RAVO [address] [address] EMERGENCY DEPARTMENT GENERAL DISCHARGE INSTRUCTIONS Thank you for coming to [facility] (ED) today and trusting us with you care. We trust that you had a positivie experience in our Emergency Department. If you wish to speak to the department management, you may call the director at [phone]. YOUR FOLLOW UP INSTRUCTIONS ARE FOLLOWS: 1. Do you have a private Doctor? If you do not have a private doctor, please ask for a resource list of physicians or clinics that may be able to assist you with follow up care. 2. The Emergency Physician has interpreted your x-rays. The X-Ray specialist will also review them. If there is a change in the findings, you will be notified in 48 hours when at all possible. 3. A lab test or culture has been done, your results will be reviewed and you will be notified if you need a change in treatment. ADDITIONAL INSTRUCTIONS AND INFORMATION: 1. Your care today has been supervised by a physician who is specially trained in emergency care. Many problems require more than one evaluation for a complete diagnosis and treatment. We recommend that you schedule your follow up appointment as recommended to ensure complete treatment of you illness or injury. If you are unable to obtain follow up care and continue to have a problem, or if your condition worsens, we recommend that you return to the ED. 2. We are not able to safely determine your condition over the phone nor are we able to give sound medical advice over the phone. For these safety reasons, if you call for medical advice we will ask you to come to the ED for further evaluation. 3. If you have any questions regarding these discharge instructions please call the ED at [phone]. SAFETY INFORMATION: In the interest of safety, wellness, and injury prevention; we encourage you to wear your sealbelt, if you smoke; quite smoking, and we encourage family to use a protective helmet for bicycling and other sporting events that present an increased risk for head injury. IF YOUR SYMPTOMS WORSEN OR NEW SYMPTOMS DEVELOP, OR YOU HAVE CONCERNS ABOUT YOUR CONDITION; OR IF YOUR CONDITION WORSENS WHILE YOU ARE WAITING FOR YOUR FOLLOW UP APPOINTMENT; EITHER CONTACT YOUR PRIMARY CARE DOCTOR, THE PHYSICIAN WHOSE NAME AND NUMBER YOU WERE GIVEN, OR RETURN TO THE ED IMMEDIATELY. Scripts Buspirone Hcl (BUSPIRONE HCL) 10 Mg Tablet 1 TAB PO BID for anxiety for 30 Days, #60 TAB 0 Refills discuss with your physician if this medication should be daily or bid as prescribed on 01/22/2020 Prov: DORCAS YU DO 03/05/21 Hydroxyzine Hcl (HYDROXYZINE HCL) 25 Mg Tablet 1 TAB PO TID PRN for ANXIETY / AGITATION, #30 TAB 0 Refills this medication will make you drowsy, don't mix with other sedatives, drive or operate heavy machinery with this medication Prov: DORCAS YU DO 03/05/21 Ondansetron (ONDANSETRON ODT) 4 Mg Tab.rapdis 4 MG PO Q6HRS for Nausea/Vomiting, #15 TAB Prov: DORCAS YU DO 03/05/21 DORCAS YU DO March 05, 2021 15:59
[2021-03-05] MEDS ORDERED: ONDANSETRON ODT 4 MG TAB.RAPDIS PO ONE (16:00)
[2021-03-05] MEDS ORDERED: ALPRAZolam 0.5 MG TABLET PO ONE (16:00)
[2021-03-05] MEDS ORDERED: ALPRAZolam 0.25 MG TABLET ONE (16:05)
[2021-03-05] MEDS ORDERED: ALPRAZolam 0.25 MG TABLET PO ONE (16:15)
[2021-03-05] MEDS ORDERED: BUSP10TA PO (18:04)
[2021-03-05] MEDS ORDERED: HYDR25TA PO (18:04)
[2021-03-05] MEDS ORDERED: ONDA4TAB12 PO (18:04)
[2021-03-05 18:15] VITALS: BP 142/78
== END 2021-03-05 18:15 | disposition home or self-care (01) ==
LOC: ER 15:07
DX: F41.1 Generalized anxiety disorder (principal)
CPT/HCPCS: 99283; Q0162

== ENCOUNTER → 2021-12-12 | Outpatient (CLI) | payer MEDICARE, OTHER ==
[~2021-12-12] MED LIST: BUSP10TA PO; HYDR25TA PO; ONDA4TAB12 PO
--- NOTE | 2021-12-14 16:08 | RAD ---
Bilateral digital screening 2-D and 3-D (tomosynthesis) mammogram: Reason for examination: Routine screening. Comparison is made to previous mammogram dated 06/23/2019. Bilateral mammograms in CC and oblique projections were obtained with 2-D imaging and 3-D tomosynthes is imaging and reviewed on the workstation. Interpretation was made with the benefit of CAD. Findings: Breast density: Category C. The breasts are heterogeneously dense, which may obscure small masses. There are no suspicious masses, malignant appearing calcifications or architectural distortion. Impression: No evidence of malignancy. ASSESSMENT: BI-RADS 1. Negative. Recommendations: Routine screening mammograms. This patient's information has been entered into a reminder system for the patient to be notified wit h the results of her examination and a target date for the next mammogram. Your patient's mammogram demonstrates that she has dense breast tissue (breast density category C or D), which could hide abnormalities, and if she has other risk factors for breast cancer that have bee n identified, she might benefit from supplemental screening tests that may be suggested by you as her ordering physician. Dense breast tissue, in and of itself, is a relatively common condition. Therefo re, this information is not provided to cause undue concern, but rather to raise your awareness and t o promote discussion with your patient regarding the presence of other risk factors, in addition to d ense breast tissue. Electronically signed by: Demi Escoto MD (12/14/2021 4:06 PM) [id number]
== END ==
LOC: MAMMO 11:25
PROVIDERS: ATTEND Physician Assistant Medical
DX: Z12.31 Encounter for screening mammogram for malignant neoplasm of breast (principal)
CPT/HCPCS: 77063; 77067